=== PATIENT | male | born 1985 ===

== ENCOUNTER 2017-07-31 10:42 | Emergency (ER) | payer OTHER ==
[2017-07-31 11:05] VITALS: TEMP 98.4; O2SAT 99
[2017-07-31] MEDS ORDERED: Absorbable Gelatin Sponge Size 12-7 ONE ×3 (11:17→11:45)
[2017-07-31] MEDS ORDERED: Absorbable Gelatin Sponge Size 12-7 MM STA (11:21)
[2017-07-31] MEDS ORDERED: Oxycodone/Acetaminophen 5/325 mg Tab PO STA (11:21)
[2017-07-31] MEDS ORDERED: Oxycodone/Acetaminophen 5/325 mg Tab ONE (11:21)
--- NOTE | 2017-07-31 11:22 | C.PDOC ---
History Of Present Illness 32 year old male presents to the ER for evaluation of laceration to the right second and third digits, sustained just prior to arrival. States he was using an electric barrel cutter and accidentally cut the fingers. No change in sensation. Tetanus is up to date. Right hand dominant. Time Seen by Provider: 07/31/17 11:04 Chief Complaint (Nursing): Abnormal Skin Integrity History Per: Patient History/Exam Limitations: no limitations Onset/Duration Of Symptoms: Mins Current Symptoms Are (Timing): Still Present Past Medical History Reviewed: Historical Data, Nursing Documentation, Vital Signs Vital Signs: Last Vital Signs Temp 98.4 F 07/31/17 11:00 Pulse 74 07/31/17 13:44 Resp 20 07/31/17 13:44 BP 124/70 07/31/17 13:44 Pulse Ox 99 07/31/17 13:29 - Medical History PMH: No Chronic Diseases Surgical History: No Surg Hx Family History: States: No Known Family Hx - Social History Hx Tobacco Use: No Hx Alcohol Use: Yes Hx Substance Use: No - Immunization History Hx Tetanus Toxoid Vaccination: Yes Hx Influenza Vaccination: No Hx Pneumococcal Vaccination: No Review Of Systems Except As Marked, All Systems Reviewed And Found Negative. Skin: Positive for: Lesions (to right 2nd and 3rd digits) Neurological: Negative for: Weakness, Numbness (and tingling) Physical Exam - Physical Exam Appears: Non-toxic, No Acute Distress Skin: Warm, Dry Head: Atraumatic, Normacephalic Eye(s): bilateral: Normal Inspection, EOMI Nose: Normal Oral Mucosa: Moist Neck: Normal ROM, Supple Chest: Symmetrical Respiratory: No Accessory Muscle Use Extremity: Normal ROM, Other (2 cm wound avulsions to the right 2nd and 3rd finger pads. Bleeding upon arrival.) Extremity: Bilateral: Normal Color And Temperature Pulses: Left Radial: Normal, Right Radial: Normal Neurological/Psych: Oriented x3, Normal Speech, No Other (focal deficits) ED Course And Treatment O2 Sat by Pulse Oximetry: 99 (RA) Pulse Ox Interpretation: Normal Progress Note: Patient given 1 tab Percocet in the ED. Wound cleansed and dressed. Gel foam applied. Pressure dressing applied. On reevaluation, bleeding has resolved. Will discharge patient w/ antibiotics, initial dose Keflex given in ED. Case discussed and patient evaluated by Dr. Amaro, who agrees with plan and discharge. Reassessment Condition: Improved Disposition Counseled Patient/Family Regarding: Diagnosis, Need For Followup, Rx Given - Disposition Referrals: Forest Cruz MD [Staff Provider] - Disposition: HOME/ ROUTINE Disposition Time: 13:00 Condition: STABLE Additional Instructions: Wound check in 2 days. Keep area clean and dry. Do not removed the foam applied to the area, it will absorble. Look for signs of infection including redness, swelling and discharge. Watch for changes in color. Chequeo de heridas en 2 noonan. Mantenga el lowell limpia y seca. No elimines la espuma aplicada al lowell, se absorber. Busque signos de infeccin que incluyen enrojecimiento, hinchazn y secrecin. Est atento a los cambios de color. Prescriptions: Cephalexin [cephalexin] 500 mg PO TID 7 Days cap Instructions: Wound Care (DC) Forms: [employer] (Serbian) Print Language: MOSOTHO - Clinical Impression Clinical Impression: Avulsion of skin of finger - PA / CORPORATE LIBRARIAN / Resident Statement MD/DO has examined the patient and agrees with the treatment plan. - Scribe Statement The provider has reviewed the documentation as recorded by the Scribe (Merlyn Nelson) All medical record entries made by the Scribe were at my direction and personally dictated by me. I have reviewed the chart and agree that the record accurately reflects my personal performance of the history, physical exam, medical decision making, and the department course for this patient. I have also personally directed, reviewed, and agree with the discharge instructions and disposition.
[2017-07-31 13:46] VITALS: BP 124/70; PULSE 74; RESP 20
== END 2017-07-31 13:44 | disposition home or self-care (01) ==
LOC: C.ER 10:42
DX: S61.200A Unspecified open wound of right index finger without damage to nail, initial encounter (principal); S61.202A Unspecified open wound of right middle finger without damage to nail, initial encounter

== ENCOUNTER 2017-08-02 12:30 | Emergency (ER) | payer OTHER ==
[2017-08-02 12:51] VITALS: BP 124/77; PULSE 79; RESP 18; TEMP 97.9; O2SAT 99
--- NOTE | 2017-08-02 13:14 | C.PDOC ---
History Of Present Illness 32 year old male presents to the emergency department for wound check. Patient was evaluated here 2 days ago for avulsion to finger tips. He notes no change in sensation, additional bleeding, or fevers. Reports taking the antibiotics. Time Seen by Provider: 08/02/17 12:32 Chief Complaint (Nursing): Wound Check History Per: Patient History/Exam Limitations: no limitations Onset/Duration Of Symptoms: Days Ago (x2) Current Symptoms Are (Timing): Still Present Past Medical History Reviewed: Historical Data, Nursing Documentation, Vital Signs Vital Signs: Last Vital Signs Temp 97.9 F 08/02/17 12:47 Pulse 79 08/02/17 12:47 Resp 18 08/02/17 13:37 BP 124/77 08/02/17 12:47 Pulse Ox 99 08/02/17 14:13 Surgical History: No Surg Hx Family History: States: No Known Family Hx - Social History Hx Tobacco Use: No Hx Alcohol Use: Yes Hx Substance Use: No - Immunization History Hx Tetanus Toxoid Vaccination: Yes Hx Influenza Vaccination: No Hx Pneumococcal Vaccination: No Review Of Systems Except As Marked, All Systems Reviewed And Found Negative. Constitutional: Negative for: Fever, Chills Skin: Positive for: Lesions (healing avulsions) Neurological: Negative for: Numbness Physical Exam - Physical Exam Appears: Non-toxic, No Acute Distress Skin: Warm, Dry Head: Atraumatic, Normacephalic Eye(s): bilateral: Normal Inspection, EOMI Nose: Normal Chest: Symmetrical Extremity: Normal ROM, Capillary Refill (< 2 sec), Other (Wound was unwrapped, gauze taken off, gel foam attached. No erythema, discharge, or swelling noted. Wound was re-dressed. ) Pulses: Left Radial: Normal, Right Radial: Normal Neurological/Psych: Oriented x3, Normal Speech, Normal Motor, Normal Sensation ED Course And Treatment O2 Sat by Pulse Oximetry: 99 (RA) Pulse Ox Interpretation: Normal Progress Note: Wound was re-dressed. Instructed wound care and to follow up for wound check in 2-3 days with PMD. Disposition Counseled Patient/Family Regarding: Diagnosis, Need For Followup - Disposition Disposition: HOME/ ROUTINE Disposition Time: 13:14 Condition: STABLE Additional Instructions: Vaya a bucio mdico o la clnica en 2-5 noonan sin falta, para mas evaluacin. [place] los medicamentos saleem indicado. Volver a la dami de emergencia en cualquier momento si los sntomas persisten o empeoran. Instructions: Wound Care (DC) Forms: [facility] ([place]), Work Excuse Print Language: BULGARIAN - POA Present On Arrival: None - Clinical Impression Clinical Impression: Avulsion of skin of finger, Encounter for wound re-check - PA / HOTEL DINING ROOM CASHIER / Resident Statement MD/DO has reviewed & agrees with the documentation as recorded. - Scribe Statement The provider has reviewed the documentation as recorded by the Scribe (Merlyn Nelson) All medical record entries made by the Scribe were at my direction and personally dictated by me. I have reviewed the chart and agree that the record accurately reflects my personal performance of the history, physical exam, medical decision making, and the department course for this patient. I have also personally directed, reviewed, and agree with the discharge instructions and disposition.
== END 2017-08-02 13:37 | disposition home or self-care (01) ==
LOC: C.ER 12:30
DX: S61.200D Unspecified open wound of right index finger without damage to nail, subsequent encounter (principal); S61.202D Unspecified open wound of right middle finger without damage to nail, subsequent encounter; W29.8XXD Contact with other powered hand tools and household machinery, subsequent encounter

== ENCOUNTER 2017-08-08 16:33 | Emergency (ER) | payer OTHER ==
[2017-08-08 17:01] VITALS: BP 109/72; PULSE 67; RESP 18; TEMP 98; O2SAT 98
--- NOTE | 2017-08-08 17:23 | C.PDOC ---
History Of Present Illness 32yo male, presents to ER for a wound check. Patient was seen in this facility 2 days ago after he sustained an avulsion laceration to his right 2nd and 3rd digit, on the palmar aspect. Patient was treated with surgicel and gelfoam. He denies any new injuries, active bleeding, pain to the area. No other complaints. Time Seen by Provider: 08/08/17 17:07 Chief Complaint (Nursing): Wound Check History Per: Patient History/Exam Limitations: no limitations Onset/Duration Of Symptoms: Days Ago (2) Current Symptoms Are (Timing): Still Present Location Of Injury: Anterior: Hand Past Medical History Reviewed: Historical Data, Nursing Documentation, Vital Signs Vital Signs: Last Vital Signs Temp 98 F 08/08/17 16:57 Pulse 67 08/08/17 16:57 Resp 18 08/08/17 16:57 BP 109/72 08/08/17 16:57 Pulse Ox 98 08/08/17 17:23 - Medical History PMH: No Chronic Diseases Surgical History: No Surg Hx Family History: States: No Known Family Hx - Social History Hx Tobacco Use: No Hx Alcohol Use: Yes Hx Substance Use: No - Immunization History Hx Tetanus Toxoid Vaccination: Yes Hx Influenza Vaccination: No Hx Pneumococcal Vaccination: No Review Of Systems Except As Marked, All Systems Reviewed And Found Negative. Constitutional: Negative for: Fever, Chills Skin: Positive for: Other (healing avulsion wound to right hand) Physical Exam - Physical Exam Appears: Non-toxic, No Acute Distress Skin: Warm, Dry, Other (healing avulsion laceration on right 2nd and 3rd digit. gelfoam in place. ) Eye(s): bilateral: Normal Inspection Neck: Normal ROM, Supple Chest: Symmetrical Cardiovascular: Rhythm Regular Respiratory: Normal Breath Sounds Extremity: Normal ROM, Other (right 2nd and 3rd digits with no dicoloration, swelling or deformation.) Neurological/Psych: Oriented x3 ED Course And Treatment O2 Sat by Pulse Oximetry: 98 (RA) Pulse Ox Interpretation: Normal Medical Decision Making Medical Decision Making: Impression: Wound check Plan: -- Patient with well healing injury, stable for discharge home. Disposition Counseled Patient/Family Regarding: Diagnosis, Need For Followup - Disposition Disposition: HOME/ ROUTINE Disposition Time: 17:22 Condition: STABLE Additional Instructions: regrese el adelso marquise pare evaluar los dedos. Instructions: Wound Care (DC) Forms: Gen Discharge Inst Italian, Work Excuse - POA Present On Arrival: None - Clinical Impression Clinical Impression: Avulsion of skin of finger - Scribe Statement The provider has reviewed the documentation as recorded by the Scribe Provider Attestation: All medical record entries made by the Scribe were at my direction and personally dictated by me. I have reviewed the chart and agree that the record accurately reflects my personal performance of the history, physical exam, medical decision making, and the department course for this patient. I have also personally directed, reviewed, and agree with the discharge instructions and disposition.
== END 2017-08-08 17:27 | disposition home or self-care (01) ==
LOC: C.ER 16:33
DX: S61.200A Unspecified open wound of right index finger without damage to nail, initial encounter (principal); S61.202A Unspecified open wound of right middle finger without damage to nail, initial encounter

== ENCOUNTER 2017-08-11 08:20 | Emergency (ER) | payer OTHER ==
[2017-08-11 08:26] VITALS: BMI 26.6
[2017-08-11 08:28] VITALS: O2SAT 96
--- NOTE | 2017-08-11 08:38 | C.PDOC ---
History Of Present Illness 32 year old male presents to ED for wound check. Pt states the wound is "better ". Pt sustained avulsion laceration to his right second and third digits on and was seen in the ER for evaluation. Pt had gel foam and pressure dressing applied at that time. Notes gel foam fell of yesterday from the second digit. Pt has had followed up several times in this ED for wound check. Otherwise, denies change in sensation, redness, swelling, or fever. Pt notes he is "almost finished" with the antibiotics. Time Seen by Provider: 08/11/17 08:35 Chief Complaint (Nursing): Wound Check History Per: Patient History/Exam Limitations: no limitations Onset/Duration Of Symptoms: Days Ago Current Symptoms Are (Timing): Still Present Location Of Injury: Right: Hand Quality Of Symptoms: denies: Swollen, Draining Recent travel outside of the [place]: No Additional History Per: Patient Past Medical History Reviewed: Historical Data, Nursing Documentation, Vital Signs Vital Signs: Last Vital Signs Temp 97.4 F L 08/11/17 09:33 Pulse 104 H 08/11/17 09:33 Resp 16 08/11/17 09:33 BP 126/72 08/11/17 09:33 Pulse Ox 96 08/11/17 09:33 Family History: States: No Known Family Hx - Social History Hx Tobacco Use: No Hx Alcohol Use: Yes Hx Substance Use: No - Immunization History Hx Tetanus Toxoid Vaccination: Yes Hx Influenza Vaccination: No Hx Pneumococcal Vaccination: No Review Of Systems Except As Marked, All Systems Reviewed And Found Negative. Constitutional: Negative for: Fever, Chills Skin: Positive for: Other (right 2nd and 3rd digit wound check) Neurological: Negative for: Weakness, Numbness Physical Exam - Physical Exam Appears: Non-toxic, No Acute Distress Skin: Warm, Dry, Other ((+) avulsion laceration on right 2nd digit. gelfoam in place to the 3rd digit. no surrounding ertyhema, discharge , or swelling) Head: Atraumatic, Normacephalic Eye(s): bilateral: Normal Inspection, EOMI Nose: Normal Oral Mucosa: Moist Neck: Normal ROM, Supple Chest: Symmetrical Respiratory: No Accessory Muscle Use Extremity: Normal ROM, Capillary Refill (less than 2 seconds), No Deformity, No Swelling (no discoloration, swelling of the right 2nd and 3rd digits) Extremity: Bilateral: Normal Color And Temperature, Normal ROM Pulses: Left Radial: Normal, Right Radial: Normal Neurological/Psych: Oriented x3, Normal Speech, Normal Motor, Normal Sensation ED Course And Treatment O2 Sat by Pulse Oximetry: 96 (RA) Pulse Ox Interpretation: Normal Progress Note: Wound was cleansed and dressed. Instructed to follow up with hand specialist or return to ER If symtpoms persist or worsen. Disposition - Disposition Referrals: Oswaldo Saab MD [Staff Provider] - Disposition: HOME/ ROUTINE Disposition Time: 08:54 Condition: STABLE Additional Instructions: Follow up with the hand specialist. Return to ER if symptoms persist or worsen. Instructions: Wound Care (DC) Forms: [email or web address] ([place]izen [place]), Work Excuse Print Language: SERBIAN - Clinical Impression Clinical Impression: Avulsion of skin of finger, Encounter for wound re-check - PA / HAND MOLDER / Resident Statement MD/DO has reviewed & agrees with the documentation as recorded. - Scribe Statement The provider has reviewed the documentation as recorded by the Scribe Sirena Mcgowan All medical record entries made by the Scribe were at my direction and personally dictated by me. I have reviewed the chart and agree that the record accurately reflects my personal performance of the history, physical exam, medical decision making, and the department course for this patient. I have also personally directed, reviewed, and agree with the discharge instructions and disposition.
[2017-08-11] MEDS ORDERED: Bacitracin 500 Units/gm Oint Foilpak UD ONE (09:02)
[2017-08-11] MEDS ORDERED: Bacitracin 500 Units/gm Oint Foilpak UD TOP ONE (09:30)
[2017-08-11 09:34] VITALS: BP 126/72; PULSE 104; RESP 16; TEMP 97.4
== END 2017-08-11 09:30 | disposition home or self-care (01) ==
LOC: C.ER 08:20
DX: Z51.89 Encounter for other specified aftercare (principal); S61.200A Unspecified open wound of right index finger without damage to nail, initial encounter